=== PATIENT | female | born 1945 | race Caucasian/White ===

== ENCOUNTER 2017-09-20 09:35 | Outpatient (CLI) | payer MEDICARE ==
[2017-09-20 12:32] LABS: BASOPHILS # (AUTO) 0.1 10^3/uL (0.0-0.1); BASOPHILS % (AUTO) 1.4 %; EOSINOPHILS # (AUTO) 0.2 10^3/uL (0.0-0.7); EOSINOPHILS % (AUTO) 4.5 %; HGB - HEMOGLOBIN 14.1 g/dL (12.0-16.0); LYMPHOCYTES # (AUTO) 1.6 10^3/uL (1.5-3.5); LYMPHOCYTES % (AUTO) 43.6 %; MEAN CORPUSCULAR HEMOGLOBIN 32.4 pg (27.0-31.0); MEAN CORPUSCULAR HGB CONC 33.9 g/dL (32.0-36.0); MEAN CORPUSCULAR VOLUME 95.5 fL (81.0-99.0); MEAN PLATELET VOLUME 8.1 fL (7.9-10.8); MONOCYTES # (AUTO) 0.2 10^3/uL (0.0-1.0); MONOCYTES % (AUTO) 6.4 %; NEUTROPHILS # (AUTO) 1.7 10^3/uL (1.5-6.6); NEUTROPHILS % (AUTO) 44.1 %; PLT - PLATELET COUNT 193 10^3/uL (130-450); RED BLOOD COUNT 4.37 10^6/uL (4.20-5.40); RED CELL DISTRIBUTION WIDTH 13.4 % (12.0-15.0); WHITE BLOOD COUNT 3.7 x10^3/uL (4.8-10.8)
[2017-09-20 13:20] LABS: THYROID STIMULATING HORMONE 1.97 uIU/mL (0.34-5.60)
[2017-09-20 13:22] LABS: FREE T4 (FREE THYROXINE) 0.69 ng/dL (0.58-1.64)
[2017-09-20 14:31] LABS: CALCIUM 9.8 mg/dL (8.5-10.3); CREATININE 0.6 mg/dL (0.4-1.0)
== END 2017-09-20 09:36 ==
LOC: LAB.WCP 09:35
PROVIDERS: ATTEND Orthopaedic Surgery Orthopaedic Surgery of the Spine
DX: M47.22 Other spondylosis with radiculopathy, cervical region (principal); E03.9 Hypothyroidism, unspecified
CPT/HCPCS: 36415; 80048; 84439; 84443; 85025

== ENCOUNTER 2019-11-19 07:00 | Outpatient (CLI) | payer OTHER, MEDICARE ==
[2019-11-19 17:58] LABS: BILIRUBIN,URINE NEGATIVE (NEGATIVE); GLUCOSE, URINE (UA) NEGATIVE (NEGATIVE); KETONES,URINE (UA) NEGATIVE (NEGATIVE); LEUKOCYTE ESTERASE, URINE SMALL (NEGATIVE); NITRITE,URINE NEGATIVE (NEGATIVE); OCCULT BLOOD,URINE NEGATIVE (NEGATIVE); PH,URINE 6.5 PH (5.0-7.5); PROTEIN,URINE NEGATIVE (NEGATIVE); UROBILINOGEN,URINE 0.2 (NORMAL) E.U./dL (NORMAL)
[2019-11-19 18:17] LABS: CLARITY,URINE HAZY (CLEAR)
[2019-11-19 18:26] LABS: BACTERIA,URINE None Seen /HPF (None Seen); EPITHELIAL CELLS,UR FEW Transitional /HPF (<= Few); RBC,URINE None Seen /HPF (0-5); SQUAMOUS EPITHELIAL CELL,UR NONE SEEN (<= Few)
== END 2019-11-19 23:59 | disposition home or self-care (01) ==
LOC: LAB.R 07:00
PROVIDERS: ATTEND Physician Assistant
DX: R31.9 Hematuria, unspecified (principal)
CPT/HCPCS: 81001; 87086

== ENCOUNTER 2020-07-08 08:00 | Outpatient (CLI) | payer OTHER, MEDICARE ==
[2020-07-08 12:26] LABS: CHOL/HDL RATIO 2.7 (<4.4); CHOLESTEROL 271 mg/dL; HDL CHOLESTEROL 100 mg/dL; LDL CHOLESTEROL,CALCULATED 163 mg/dL; LDL/HDL RATIO 1.6 (<4.4); TRIGLYCERIDES 41 mg/dL; VLDL CHOLESTEROL 8 mg/dL
[2020-07-08 12:35] LABS: THYROID STIMULATING HORMONE 1.23 uIU/mL (0.34-5.60)
[2020-07-08 12:37] LABS: FREE T4 (FREE THYROXINE) 0.62 ng/dL (0.58-1.64)
== END 2020-07-08 23:59 | disposition home or self-care (01) ==
LOC: LAB.WCP 08:00
DX: E78.5 Hyperlipidemia, unspecified (principal); E03.9 Hypothyroidism, unspecified
CPT/HCPCS: 36415; 80061; 83721; 84436; 84439; 84443

== ENCOUNTER 2021-01-29 13:33 | Outpatient (CLI) | payer OTHER, MEDICARE ==
--- NOTE | 2021-01-29 15:31 | XRAY Report ---
PROCEDURE: Ankle 3 View RT INDICATIONS: RIGHT ANKLE PAIN TECHNIQUE: 3 views of the ankle were acquired. COMPARISON: None. FINDINGS: Bones: No fractures or dislocations. Ankle mortise is normally aligned. No suspicious bony lesions . There is pes planus. Small dystrophic desiccation seen at the posterior calcaneus suggesting dista l Achilles tendinopathy. Scattered subchondral sclerosis and spurring. Soft tissues: No tibiotalar joint effusion. Achilles tendon appears normal. IMPRESSION: Pes planus. Mild degenerative changes. If the patient's pain or other symptoms persist, consider further evaluation with MRI. Reviewed by: Med Jacques MD on 01/29/2021 3:29 PM PST Approved by: Med Jacques MD on 01/29/2021 3:29 PM PST Station ID: [id number]
== END 2021-01-29 23:59 | disposition home or self-care (01) ==
LOC: DI.N 13:33
PROVIDERS: ATTEND Family Medicine
DX: M21.41 Flat foot [pes planus] (acquired), right foot (principal); M19.071 Primary osteoarthritis, right ankle and foot

== ENCOUNTER 2021-05-05 10:34 | Outpatient (CLI) | payer OTHER, MEDICARE ==
--- NOTE | 2021-05-05 14:08 | MRI Report ---
PROCEDURE: Ankle RT W/O INDICATIONS: INJURY TO RIGHT ANKLE TECHNIQUE: Noncontrast Magnetic Resonance Imaging (MRI) of the ankle/hindfoot was performed utilizing the follow ing sequences on a 3.0 Renetta Siemens MRI: sagittal T1 spin echo, sagittal STIR, axial PD fast spin ec ho, axial T2 fast spin echo with fat saturation, coronal T2 spin echo with fat saturation, and PD fas t spin echo with fat saturation. COMPARISON: Ankle radiographs dated January 29, 2021. Findings: Bones: No evidence of fracture, infiltration, ischemia or contusion. Os trigonum. Muscles: No evidence of muscular atrophy or edema. Anterior tibiofibular ligament: Intact. Posterior tibiofibular ligament: Intact. Calcaneofibular ligament: Intact. Talar dome: No significant abnormality. Anterior talofibular ligament: Intact. Posterior talofibular ligament: Intact. Deltoid ligament: Intact. Peroneal tendons: No evidence of tear or tenosynovitis. Tibialis posterior: No evidence of tear or tenosynovitis. Flexor digitorum: No evidence of tear or tenosynovitis. Flexor hallucis longus: No evidence of tear or tenosynovitis. Sinus Tarsi: T2 hyperintense signal, compatible with edema. Achilles tendon: Intact. Joint effusion: Small tibiotalar joint effusion. Plantar fascia: No evidence of tear or inflammation. IMPRESSION: 1. Small tibiotalar joint effusion. 2. Edema within the sinus Tarsi. 3. Os trigonum. Reviewed by: Deep Busch MD on 05/05/2021 2:07 PM PST Approved by: Deep Busch MD on 05/05/2021 2:07 PM PST Station ID: [id number]
== END 2021-05-05 10:35 | disposition home or self-care (01) ==
LOC: DI 10:34
PROVIDERS: ATTEND Podiatrist
DX: S99.911A Unspecified injury of right ankle, initial encounter (principal); M25.471 Effusion, right ankle; R93.6 Abnormal findings on diagnostic imaging of limbs; R93.89 Abnormal findings on diagnostic imaging of other specified body structures; Q68.8 Other specified congenital musculoskeletal deformities

== ENCOUNTER 2022-07-15 11:23 | Outpatient (CLI) | payer OTHER, MEDICARE ==
--- NOTE | 2022-07-15 13:34 | XRAY Report ---
PROCEDURE: Ankle 3 View RT INDICATIONS: SPRAIN OF RIGHT ANKLE TECHNIQUE: 3 views of the ankle were acquired. COMPARISON: Right ankle radiographs 01/29/2021. FINDINGS: Bones: No fractures or dislocations. Mild degenerative changes. Ankle mortise is normally aligned. No suspicious bony lesions. Soft tissues: No tibiotalar joint effusion. Achilles tendon appears normal. IMPRESSION: No acute bony abnormality. Reviewed by: Williams Santana MD on 07/15/2022 1:33 PM PDT Approved by: Williams Santana MD on 07/15/2022 1:33 PM PDT Station ID: [id number]
== END 2022-07-15 23:59 | disposition home or self-care (01) ==
LOC: DI.N 11:23
PROVIDERS: ATTEND Physician Assistant Medical
DX: S93.491A Sprain of other ligament of right ankle, initial encounter (principal)

== ENCOUNTER 2022-09-18 09:55 | Emergency (ER) | payer OTHER, MEDICARE ==
--- NOTE | 2022-09-18 10:54 | ED Physician Documentation ---
PD HPI UPPER EXT INJURY - Stated complaint Stated Complaint: RT RING FINGER SWELLING/RING STUCK - Chief complaint Chief Complaint: General - History obtained from History obtained from: Patient - Additonal information Additional information: Patient is a 77-year-old female presenting for evaluation of a ring that is stuck to her right ring finger. Patient states that has been there for 3 days. She was stung on the finger by a wasp and has since swelled up. She has not been able to remove the ring. She was hoping that the swelling would come down on its own but has not and the fingers becoming more painful. Has tried ice and elevation without improvement. Review of Systems Constitutional: denies: Fever Cardiac: denies: Chest pain / pressure Respiratory: denies: Dyspnea GI: denies: Abdominal Pain Musculoskeletal: reports: Extremity pain PD PAST MEDICAL HISTORY - Past Medical History Past Medical History: Yes Endocrine/Autoimmune: HyPERthyroidism - Allergies Allergies/Adverse Reactions: Allergies Allergy/AdvReac Type Severity Reaction Status Date / Time No Known Drug Allergies Allergy Verified 09/18/22 10:10 - Social History Does the pt smoke?: No Smoking Status: Never smoker PD ED PE NORMAL - General General: Alert and oriented X 3, No acute distress, Well developed/nourished - HEENT HEENT: Atraumatic - Respiratory Respiratory: No respiratory distress - Extremities Extremities: Other (Swelling to right ring finger with gus silver ring, Mild erythema at site where she was stung, normal range of motion of joints,) Results - Vitals Vitals: Vital Signs - 24 hr 09/18/22 09/18/22 10:04 11:06 Temperature 36.0 C L 36.7 C Heart Rate 75 80 Respiratory 18 16 Rate Blood Pressure 128/80 114/74 O2 Saturation 100 100 Oxygen O2 Source Room air PD Medical Decision Making - ED course ED course: Patient presenting for evaluation of ring that is stuck on her right ring finger after being stung on the finger and developing swelling. Patient did give verbal permission to cut the ring. I was able to cut the ring and 2 spots with the ring rescue device with no injury to patient's skin or finger. The ring was then easily removed. She was given the ring back. She has good range of motion at all digits of the finger and feels significantly improved. Patient counseled on concerning symptoms to return for. Departure - Departure Disposition: 01 Home, Self Care Clinical Impression: Ring or other jewelry causing external constriction, initial encounter, Hymenoptera reaction Condition: Stable Instructions: ED Bite Sting Insect Local Allergic React Comments: The ring that was on your right ring finger was cut and removed. Please continue with ice and elevating it to help with the swelling in the finger. Return to the ER with any concerns. Forms: PCP List Discharge Date/Time: 09/18/22 11:06
[2022-09-18 11:14] VITALS: BP 114/74
== END 2022-09-18 11:06 | disposition home or self-care (01) ==
LOC: ED 09:55
DX: S60.444A External constriction of right ring finger, initial encounter (principal); W49.04XA Ring or other jewelry causing external constriction, initial encounter; T63.461A Toxic effect of venom of wasps, accidental (unintentional), initial encounter; M79.89 Other specified soft tissue disorders
CPT/HCPCS: 99281; 99283

== ENCOUNTER 2023-10-12 10:50 | Outpatient (CLI) | payer OTHER, MEDICARE ==
--- NOTE | 2023-10-12 17:03 | DEXA Report ---
PROCEDURE: Dexa Spine and/or Hip INDICATIONS: POST MENOPAUSAL TECHNIQUE: Dual energy x-ray absorptiometry (DXA) was performed on a [employer] System. Regions measur ed are the AP Spine, femoral neck, and if needed forearm. COMPARISON: None FINDINGS: Lumbar Spine: Bone Mineral Density: 1.143 g/cm/cm,T score: -0.3. Normal Left Femoral Neck: Bone Mineral Density: 0.846 g/cm/cm, T score: -1.4. Left Hip: Bone Mineral Density: 0.860 g/cm/cm,T score: -1.2. Osteopenia FRAX risk factors: None given. 10 year risk of major osteoporotic fracture: 11.9% major osteoporotic fracture = hip, clinical vertebral, proximal humerus, distal forearm 10 year risk of hip fracture: 2.5% (T score greater or equal to -1.0: NORMAL) (T score from -1.1 to -2.4: OSTEOPENIA) (T score less than or equal to -2.5 to: OSTEOPOROSIS) Impression: By WHO criteria, this patient has low bone density (osteopenia). The 10 year risk of major osteoporotic fracture is 11.9% and of a hip fracture is 2.5%. Patients with diagnosis of osteoporosis or osteopenia should have regular bone mineral density assess ment. For those eligible for Medicare, routine testing is allowed once every 2 years. Testing frequ ency can be increased for patients who have rapidly progressing disease or for those who are receivin g medical therapy to restore bone mass. Reviewed by: Avinash Lynch MD on 10/12/2023 5:01 PM PDT Approved by: Avinash Lynch MD on 10/12/2023 5:01 PM PDT Station ID: [id number]
== END 2023-10-12 10:51 | disposition home or self-care (01) ==
LOC: DI 10:50
PROVIDERS: ATTEND Nurse Practitioner Family
DX: M85.89 Other specified disorders of bone density and structure, multiple sites (principal); Z78.0 Asymptomatic menopausal state